=== PATIENT | male | born 1985 | race Caucasian/White ===

== ENCOUNTER 2018-10-31 17:51 | Emergency (ER) | payer OTHER ==
[~2018-10-31] VITALS: Ht 165.1 cm; Wt 70.3 kg
[2018-10-31] MEDS ORDERED: LORAZEPAM 2 MG/1 ML VIAL IV ONE (18:15)
--- NOTE | 2018-10-31 18:15 | NUR ---
PATIENT IS AWAKE AND ALERT, HE IS VERY NERVOUS. 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 12 LEAD EKG DONE. IV PLACED.
[2018-10-31] MEDS ORDERED: LORAZEPAM 2 MG/1 ML VIAL ONE (18:28)
[2018-10-31 18:29] LABS: BASOPHILS # (AUTO) 0.1 K/uL (0.0-8.0); BASOPHILS % (AUTO) 0.7 % (0.0-2.0); EOSINOPHILS % (AUTO) 0.2 % (0.0-7.0); HEMATOCRIT 46.1 % (36.7-47.1); HEMOGLOBIN 15.6 g/dL (12.5-16.3); LYMPHOCYTES # (AUTO) 2.6 K/uL (20.0-40.0); LYMPHOCYTES % (AUTO) 23.6 % (20.5-51.5); MEAN CORPUSCULAR HEMOGLOBIN 30.7 uug (23.8-33.4); MEAN CORPUSCULAR HGB CONC 34 g/dL (32.5-36.3); MEAN CORPUSCULAR VOLUME 90.7 fL (73.0-96.2); MONOCYTES # (AUTO) 1.2 K/uL (2.0-10.0); MONOCYTES % (AUTO) 11.2 % (0.0-11.0); NEUTROPHILS # (AUTO) 7.1 K/uL (1.8-8.9); NEUTROPHILS % (AUTO) 64.3 % (38.5-71.5); PLATELET COUNT (AUTO) 285 K/uL (152-348); RED BLOOD CELL COUNT(AUTO) 5.09 MIL/uL (4.06-5.63)
[2018-10-31 18:34] LABS: CREATININE 1.1 mg/dL (0.6-1.3); POTASSIUM 3.3 mmol/L (3.5-5.1)
--- NOTE | 2018-10-31 19:04 | NUR ---
HAND OFF REPORT GIVEN TO KAYA DENIS
--- NOTE | 2018-10-31 19:21 | NUR ---
IV removed. Catheter intact and site benign. Pressure and 4x4 gauze applied to site. No bleeding noted.
--- NOTE | 2018-10-31 19:30 | NUR ---
Patient discharged to home in stable conditon. Written and verbal after care instructions given. Patient verbalizes understanding of instructions. Pt ambulated out of ER in stable gait. Pt states he feels much better. Pt states he will take a [employer] for transportation. All belongings w pt. VSS. No acute distress noetd.
[2018-10-31 19:32] VITALS: BP 147/73
== END 2018-10-31 19:34 | disposition home or self-care (01) ==
LOC: ER 17:54
DX: F41.9 Anxiety disorder, unspecified (principal); F14.10 Cocaine abuse, uncomplicated; J45.909 Unspecified asthma, uncomplicated; F12.10 Cannabis abuse, uncomplicated
CPT/HCPCS: 36415; 71045; 80048; 85025; 85379; 93005; 96374; 99284; J2060; A4663; J7030